=== PATIENT | female | born 1980 | race Caucasian/White ===

== ENCOUNTER 2020-12-24 11:53 | Inpatient (IN) | payer OTHER ==
[2020-12-24 15:36] VITALS: BMI 34.9
[2020-12-24] MEDS ORDERED: HYDRALAZINE HCL 20 MG/ML VIAL IV PRN (15:48)
--- NOTE | 2020-12-24 16:04 | P.HP ---
Certification for Inpatient Patient admitted to: Inpatient With expected LOS: >2 Midnights Patient will require the following post-hospital care: None Practitioner: I am a practitioner with admitting privileges, knowledge of patient current condition, hospital course, and medical plan of care. Services: Services provided to patient in accordance with Admission requirements found in Title 42 Section 412.3 of the Code of Federal Regulations Patient History Date of Service: 12/24/20 Primary Care Provider: abram Reason for admission: supraventricular History of Present Illness: Patient has been having a week of tachycardia. She had a syncopal episode during a airplane trip. She had a negative ct scan at that time. However she continued to have dizziness and tachycardia. Followed up with us on . The patient had thyroid labs done and was started on coreg However she is having brain fog dizziness and continous tachycardia. She is very cncerned about this. Allergies No Known Allergies Allergy (Unverified 12/24/20 15:54) - Past Medical/Surgical History -: Anxiety -: Depression -: Migraine -: Thyroid Dz -: Rods in Rt leg -: Right leg repair/hx of fracture -: Breast augmentation -: - Social History Smoking Status: Never smoker Alcohol use: No CD- Drugs: No Caffeine use: No Place of Residence: Home Review of Systems 10-point ROS is otherwise unremarkable Cardiovascular: Palpitations, Light Headedness Physical Examination - Vital Signs Temperature: 98.6 F Blood Pressure: 143/82 Pulse: 87 Respirations: 16 Pulse Ox (%): 97 - Physical Exam General: Alert, In no apparent distress HEENT: Atraumatic, PERRLA, Mucous membr. moist/pink, EOMI, Sclerae nonicteric Neck: Supple, 2+ carotid pulse no bruit, No LAD, Without JVD or thyroid abnormality Respiratory: Clear to auscultation bilaterally, Normal air movement Cardiovascular: Normal S1 S2, Irregular heart rate/rhythm Gastrointestinal: Normal bowel sounds, No tenderness Musculoskeletal: No tenderness Integumentary: No rashes Neurological: Normal gait, Normal speech, Normal strength at 5/5 x4 extr, Normal tone, Normal affect Lymphatics: No axilla or inguinal lymphadenopathy Assessment and Plan - Problems (Diagnosis) (1) Supraventricular arrhythmia Current Visit: Yes Status: Acute Plan: Will admit to the hospital Increase the patients coreg. Consult Dr. Almanzar. Will keep her on levaquin. Order a stat ct scan Discharge Plan: Home Plan to discharge in: 48 Hours - Advance Directives Does patient have a Living Will: No Does patient have a Durable POA for Healthcare: No - Code Status/Comfort Care Code Status Assessed: No Code Status: Full Code Physician Review: Patient Assessed, Agree with Above Assessment and Plan Critical Care: No Time Spent Managing Pts Care (In Minutes): 70
[2020-12-24] MEDS ORDERED: ALPRAZOLAM 1 MG TABLET PO PRN (16:09)
[2020-12-24] MEDS: carvediloL 12.5 MG TAB PO SCH (16:57)
[2020-12-24] MEDS ORDERED: ENOXAPARIN 40 MG/0.4 ML SQ SCH (17:00)
[2020-12-24] MEDS ORDERED: DIVALPROEX ER 250 MG TAB PO SCH (21:00)
[2020-12-24] MEDS ORDERED: TOPIRAMATE 100 MG TAB PO SCH (21:00)
[2020-12-25] MEDS: carvediloL 12.5 MG TAB PO SCH (06:13)
[2020-12-25 06:39] LABS: Absolute Lymphocytes (CBC) 2.1 K/uL (0.7-4.9); Basophils % 0.8 % (0-1.3); Hematocrit 38.5 % (36.0-45.0); MPV 10.5 fL (7.6-11.3)
[2020-12-25 06:48] LABS: Albumin 2.7 g/dL (3.4-5.0); Bilirubin Total 0.3 mg/dL (0.2-1.0); Potassium 3.6 mmol/L (3.5-5.1)
[2020-12-25] MEDS ORDERED: PNEUMOCOCCAL VACCINE 0.5 ML IMVAC ONE (08:00)
[2020-12-25] MEDS ORDERED: INFLUENZA VACCINE (for 6+ mo) 0.5 ML DOSE IMVAC ONE (08:00)
[2020-12-25] MEDS: GABAPENTIN 300 MG CAP PO SCH ×2 (08:15→13:50)
[2020-12-25 08:41] VITALS: BP 118/69; TEMP 96.8
[2020-12-25] MEDS ORDERED: SUMATRIPTAN SUCC 6MG/0.5ML VIAL SQ PRN (09:00)
[2020-12-25] MEDS ORDERED: DICLOFENAC SOD D.R. 75 MG TAB PO SCH (09:00)
[2020-12-25] MEDS ORDERED: PARoxetine HCL 10 MG TAB PO SCH (09:00)
[2020-12-25 10:17] VITALS: O2SAT 100
--- NOTE | 2020-12-25 13:12 | P.DS ---
Admission Date: 12/24/20 Discharge Date: 12/25/20 Primary Care Provider: abram Disposition: ROUTINE DISCHARGE Discharge Condition: GOOD Reason for Admission: supraventricular - Problems (1) Supraventricular arrhythmia Current Visit: Yes Status: Acute (2) Sleep apnea Current Visit: Yes Status: Acute Qualifiers: Sleep apnea type: obstructive Qualified Code(s): G47.33 - Obstructive sleep apnea (adult) (pediatric) (3) Depression Current Visit: Yes Status: Chronic Qualifiers: Depression Type: major depressive disorder Brief History of Present Illness: Patient has been having a week of tachycardia. She had a syncopal episode during a airplane trip. She had a negative ct scan at that time. However she continued to have dizziness and tachycardia. Followed up with us on . The patient had thyroid labs done and was started on coreg However she is having brain fog dizziness and continous tachycardia. She is very cncerned about this. Hospital Course: Patient was admitted to the hospital for the SVT. When here she gave a MED Rec. Several medications I was unaware of. 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 She has been on clonazepam, riatlin, and occasional norcos. However the patient states she only takes the ritalin when she feels like and splits the pills in half. 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 I had a long discussion with her that this is dangerous polypharmacy. She goes to a [place] psychiatrist for these medications. 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 She had a normal sleep studies a few years ago. She has a stop bang score of 4. Which is a high risk of sleep ap gerhard. Several times people with anxiety and difficulty focusing have been given the above meds for anxiety and ahdh. They do improve with cpap. Will discharge on coreg. She is rate controlled at this time. The patient can have her work up for sleep apnea and an echo as an out patient . Vital Signs/Physical Exam: Temp Pulse Resp BP Pulse Ox 96.8 F 60 16 118/69 100 12/25/20 08:00 12/25/20 08:00 12/25/20 08:00 12/25/20 08:00 12/25/20 08:00 General: Alert, In no apparent distress HEENT: Atraumatic, PERRLA, Other (Mallampatti score is 3), EOMI Neck: Supple, JVD not distended, Other (neck circumference is 15") Respiratory: Clear to auscultation bilaterally, Normal air movement Cardiovascular: Regular rate/rhythm, Normal S1 S2 Gastrointestinal: Normal bowel sounds, No tenderness Musculoskeletal: No tenderness Integumentary: No rashes Neurological: Normal speech, Normal tone, Normal affect Lymphatics: No axilla or inguinal lymphadenopathy Laboratory Data at Discharge: WBC 5.20 K/uL (4.3-10.9) 12/25/20 06:15 Hgb 12.8 g/dL (12.0-15.0) 12/25/20 06:15 Hct 38.5 % (36.0-45.0) 12/25/20 06:15 Plt Count 151 K/uL (152-406) L 12/25/20 06:15 Sodium 145 mmol/L (136-145) 12/25/20 06:15 Potassium 3.6 mmol/L (3.5-5.1) 12/25/20 06:15 BUN 11 mg/dL (7-18) 12/25/20 06:15 Creatinine 0.97 mg/dL (0.55-1.3) 12/25/20 06:15 Glucose 105 mg/dL (74-106) 12/25/20 06:15 Total Bilirubin 0.3 mg/dL (0.2-1.0) 12/25/20 06:15 AST 8 U/L (15-37) L 12/25/20 06:15 ALT 19 U/L (12-78) 12/25/20 06:15 Alkaline Phosphatase 132 U/L (45-117) H 12/25/20 06:15 Home Medications: Butalbit/Acetamin/Caff/Codeine [Wibnxh-Tffjzkup-Saa-Cod 50-325] 50 - 325 mg PO DAILY PRN 12/24/20 Cyclobenzaprine [Flexeril*] 10 mg PO BID PRN 12/24/20 Divalproex ER [Depakote *ER] 500 mg PO BEDTIME 12/24/20 Gabapentin 600 mg PO TID 12/24/20 Ondansetron [Zofran (Odt)*] 4 mg PO PRN PRN 12/24/20 Paroxetine HCl [Paxil] 20 mg PO DAILY 12/24/20 Rizatriptan Benzoate [Rizatriptan] 10 mg PO PRN PRN 12/24/20 Topiramate [Topamax] 100 mg PO BEDTIME 12/24/20 Trazodone [Desyrel*] 100 mg PO BEDTIME 12/24/20 carvediloL [Coreg*] 6.25 mg PO BID 12/24/20 hydrOXYzine HCL [Atarax*] 25 mg PO DAILY PRN 12/24/20 Diclofenac Na [Voltaren D.r*] 75 mg PO DAILY PRN #30 tab 12/25/20 carvediloL [Coreg*] 12.5 mg PO BID 6AM 6PM 30 Days #60 tab 12/25/20 New Medications: carvediloL [Coreg*] 12.5 mg PO BID 6AM 6PM 30 Days #60 tab Diclofenac Na [Voltaren D.r*] 75 mg PO DAILY PRN #30 tab PRN Reason: Pain Scale 8-10 (Severe) Diet: Regular Activity: Ad alvin Followup: Alex Gallagher MD [Family Provider] - 1 Week Daniel Almanzar MD [ACTIVE - CAN ADMIT] - 1-2 Weeks Time spent managing pt's care (in minutes): 40
[2020-12-25] MEDS ORDERED: TRAZODONE 50 MG TABLET PO SCH (21:00)
--- NOTE | 2020-12-28 07:41 | ECHO ---
HEIGHT: 5 ft 8 in WEIGHT: 230 lb 0 oz DATE OF STUDY: 12/25/[address]: Alex Gallagher MD 2-DIMENSIONAL: YES M.MODE: YES DOPPLER: YES COLOR FLOW: YES TDS: NO PORTABLE: NO DEFINITY: NO BUBBLE STUDY: NO DIAGNOSIS: SUPRAVENTRICULAR TACHYCARDIA CARDIAC HISTORY: CATHERIZATION: NO SURGERY: NO PROSTHETIC VALVE: NO PACEMAKER: NO MEASUREMENTS (cm) DIASTOLIC (NORMALS) SYSTOLIC (NORMALS) IVSd 1.0 (0.6-1.2) LA Diam 3.1 (1.9-4.0) LVEF 60-65% LVIDd 4.3 (3.5-5.7) LVIDs 2.6 (2.0-3.5) %FS 41% LVPWd 1.2 (0.6-1.2) Ao Diam 2.5 (2.0-3.7) 2 DIMENSIONAL ASSESSMENT: RIGHT ATRIUM: NORMAL LEFT ATRIUM: NORMAL RIGHT VENTRICLE: NORMAL LEFT VENTRICLE: NORMAL TRICUSPID VALVE: NORMAL MITRAL VALVE: NORMAL PULMONIC VALVE: NORMAL AORTIC VALVE: NORMAL PERICARDIAL EFFUSION: NONE AORTIC ROOT: NORMAL LEFT VENTRICULAR WALL MOTION: NORMAL DOPPLER/COLOR FLOW: NORMAL COMMENTS: NORMAL LEFT VENTRICULAR EJECTION FRACTION 60-65%. NORMAL WALL MOTION. TECHNOLOGIST: Sánchez PHAN
== END 2020-12-25 14:15 | disposition home or self-care (01) | DRG 310 ==
LOC: 4TH 14:40
PROVIDERS: ADMIT Internal Medicine; ATTEND Internal Medicine
DX: I47.1 Supraventricular tachycardia (principal); G47.33 Obstructive sleep apnea (adult) (pediatric); F32.A Depression, unspecified; Z79.899 Other long term (current) drug therapy; Z20.822 Contact with and (suspected) exposure to COVID-19; Z23 Encounter for immunization
CPT/HCPCS: 36415; 80053; 85025; 90471; 90732; 93005; 93306; J1650; J3030; Q2035; U0003

== ENCOUNTER 2021-02-04 22:03 | Emergency (ER) | payer OTHER ==
--- OUTSIDE RECORDS SUMMARY | 2021-02-04 22:05 | XMS REPORT | Continuity of Care Document ---
:1980 Author Organization [facility] t Address [address] [place] [address] Care Team Providers Name Role Phone Carter LICONA Attending Clinician Unavailable Porter CAMILO Attending Clinician Unavailable Mary NO, L Attending Clinician Sandrita FRANCES Attending Clinician Unavailable Payers Payer Name Policy Type Policy Number Effective Date Expiration Date S ource HIM AMBETTER FROM [id number] 2020 FORMERLY [facility] 00:00:00 [employer] [id number] 2019 00:00:00 Problems This patient has no known problems. Allergies, Adverse Reactions, Alerts Allergy Allergy Status Severity Reaction(s) Onset Inactive Treating Comm ents Source Name Type Date Date Clinician Sulfa Propensi Active Rash 2020-0 Univers (Sulfona ty to 7-03 ity of mide adverse 00:00: [place] Antibiot reaction 00 Medica l ics) s Branch SULFA Drug Active Hives 2020-0 Univers (SULFONA Class 7-03 ity of MIDE 00:00: [place] ANTIBIOT 00 Medical ICS) Branch NO KNOWN Drug Active Univers ALLERGIE Class ity of S [facility] Social History Social Habit Start Date Stop Date Quantity Comments [facility] Smoking Status Start Date Stop Date Source Never smoker [facility] Medications This patient has no known medications. Vital Signs Vital Name Observation Time Observation Value Comments Source Systolic blood 2019-09-06 13:42:00 136 mm[Hg] Univer sity [facility] pressure [facility] Diastolic blood 2019-09-06 13:42:00 92 mm[Hg] [facility] rate 2019-09-06 13:37:00 134 /min Universi ty [facility] Body weight 2019-09-06 13:37:00 99.791 kg Universi ty of [facility] Procedures This patient has no known procedures. Encounters Start End Encounter Admission Attending Care Care Encounter Source Date/Time Date/Time Type Type Clinicians Facility Department ID 2020-05-29 2020-05-29 Outpatient Venus LICONA [facility] [id number] Univers 11:00:00 11:00:00 JAMILAH [facility] 2020-05-08 2020-05-08 Outpatient [facility] [id number] Univers 11:20:00 11:20:00 [id number] [facility] 2020-05-08 2020-05-08 Outpatient Venus LICONA [facility] [id number] Univers 11:20:00 11:20:00 JAMILAH [facility] 2020-03-16 2020-03-16 Outpatient Venus CAMILO [facility] [id number] Univers 14:30:00 14:30:00 WALTER [id number] [facility] 2020-03-16 2020-03-16 Outpatient Venus CAMILO [facility] [id number] Univers 14:30:00 14:30:00 WALTER [facility] 2020-03-13 2020-03-13 Outpatient Venus CAMILO [facility] [id number] Univers 08:30:00 08:30:00 WALTER [id number] [facility] 2020-03-13 2020-03-13 [facility] [id number] Univers 08:30:00 08:30:00 WALTER [facility] 2019-12-05 2019-12-05 Outpatient Venus CAMILO [facility] [id number] Univers 14:15:00 14:15:00 WALTER [facility] 2019-12-05 2019-12-05 Outpatient Venus CAMILO [facility] [id number] Univers 14:15:00 14:15:00 WALTER [facility] 2019-11-28 2019-11-28 Outpatient Venus CAMILO [facility] [id number] Univers 14:45:00 14:45:00 WALTER [id number] [facility] 2019-11-28 2019-11-28 Outpatient R LESLEE [facility] [id number] Univers 14:45:00 14:45:00 WALTER peralta [facility] 2019-09-06 2019-09-06 Hospital [facility] [id number] Univers 08:54:00 23:59:00 Encounter Anibal Remy [employer] [id number] ity of Surgical [id number] Ruben as Specialti [id number] Tn suhail es [address] [facility] 2019-09-06 2019-09-06 Office [facility] [id number] Univers 08:29:22 09:41:49 Visit Anibal Remy [employer] [id number] it y of Surgical [id number] Ruben as Specialti [id number] Tn fanyal es [address] [facility] 2019-09-06 2019-09-06 [facility] [id number] Univers 08:30:00 08:30:00 ANIBAL peralta [facility] Results This patient has no known results.
[2021-02-04] MEDS ORDERED: ASPIRIN 81 MG CHEWABLE TABLET ONE (22:27)
[2021-02-04 22:35] LABS: Absolute Lymphocytes (CBC) 3.2 K/uL (0.7-4.9); Basophils % 1.1 % (0-1.3); Hematocrit 41.5 % (36.0-45.0); Lymphocytes % 39.7 % (15.3-44.8); MPV 10.3 fL (7.6-11.3); RBC Red Blood Cell Count 4.58 M/uL (3.86-4.86)
[2021-02-04 22:36] LABS: Protime INR 0.9
[2021-02-04 22:53] LABS: ALT/SGPT 17 U/L (12-78); AST/SGOT 15 U/L (15-37); Albumin 2.7 g/dL (3.4-5.0); Alkaline Phosphatase 129 U/L (45-117); BUN Blood Urea Nitrogen 12 mg/dL (7-18); Bicarbonate 24 mmol/L (21-32); Bilirubin Direct < 0.1 mg/dL (0-0.2); Bilirubin Total 0.1 mg/dL (0.2-1.0); Glucose Level 115 mg/dL (74-106); NT PRO-BNP 40 pg/mL (<125); Potassium 3.8 mmol/L (3.5-5.1); Protein, Total 6.8 g/dL (6.4-8.2); Sodium Level 139 mmol/L (136-145); Troponin (Emerg Dept Use Only) < 0.02 ng/mL (0.0-0.045)
--- NOTE | 2021-02-04 22:59 | ER ---
Nurse's Notes [facility] Name: Ngozi Valdes Age: 40 yrs Sex: Female : 1980 Arrival Date: 02/04/2021 Time: 22:04 Bed 11 Private MD: Diagnosis: Essential (primary) hypertension;Chest pain, unspecified;Obesity, unspecified Presentation: 02/04 22:15 Chief complaint: Patient states: she was lying down tonight and started having chest bb pain radiating around her chest and back and into her shoulders pain is currently 8/10 and she feels short of breath. Coronavirus screen: At this time, the client does not indicate any symptoms associated with coronavirus-19. Ebola Screen: No symptoms or risks identified at this time. Initial Sepsis Screen: Does the patient meet any 2 criteria? No. Patient's initial sepsis screen is negative. Does the patient have a suspected source of infection? No. Patient's initial sepsis screen is negative. Risk Assessment: Do you want to hurt yourself or someone else? Patient reports no desire to harm self or others. Onset of symptoms was February 04, 2021. 22:15 Method Of Arrival: Ambulatory bb 22:15 Acuity: KASSY 3 bb Triage Assessment: 22:23 General: Appears in no apparent distress. uncomfortable, Behavior is cooperative, bb anxious. Pain: Complains of pain in chest Pain currently is 8 out of 10 on a pain scale. Neuro: Level of Consciousness is awake, alert, obeys commands, Oriented to person, place, time, situation. Cardiovascular: Capillary refill < 3 seconds Patient's skin is warm and dry. Pulses are all present. Rhythm is sinus tachycardia. Respiratory: Respiratory effort is even, unlabored, Respiratory pattern is regular. GI: Abdomen is obese. : No signs and/or symptoms were reported regarding the genitourinary system. Derm: Skin is pink, warm \T\ dry. Musculoskeletal: Circulation, motion, and sensation intact. 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 - Social history:: Smoking status: Patient denies any tobacco usage or history of. Patient/guardian denies using alcohol, street drugs. - Family history:: not pertinent. Screenin:27 Abuse screen: Denies threats or abuse. Nutritional screening: No deficits noted. bb Tuberculosis screening: No symptoms or risk factors identified. Fall Risk None identified. Assessment: 22:27 Reassessment: No changes from previously documented assessment. Patient is alert, bb oriented x 3, equal unlabored respirations, skin warm/dry/pink. see triage assessment. Vital Signs: 22:15 BP 132 / 88; Pulse 105; Resp 18 S; Temp 98.1(TE); Pulse Ox 100% on R/A; Weight 104.33 bb kg (R); Height 5 ft. 8 in. (172.72 cm) (R); Pain 8/10; 22:15 Body Mass Index 34.97 (104.33 kg, 172.72 cm) bb ED Course: 22:04 Patient arrived in ED. bp1 22:19 Inserted saline lock: 20 gauge in right antecubital area, using aseptic technique. ld1 Blood collected. 22:21 Jayjay Westbrook MD is Attending Physician. abelardo 22:23 Triage completed. bb 22:23 Arm band placed on Patient placed in an exam room, on a stretcher, on bus driver/monitor, bb on pulse oximetry. EKG completed in triage. Results shown to MD. Family accompanied patient. 22:27 Patient maintains SpO2 saturation greater than 95% on room air. bb 22:27 Patient has correct armband on for positive identification. Placed in gown. Bed in low bb position. Call light in reach. color television console monitor on. Pulse ox on. NIBP on. Warm blanket given. 22:36 XRAY Chest (1 view) In Process Unspecified. EDMS 22:55 Isaiah Yu is Hospitalizing Provider. abelardo 23:34 CT Chest For PE Angio In Process Unspecified. EDMS 12 00:06 No provider procedures requiring assistance completed. Patient admitted, IV remains in lp1 place. Administered Medications: 02/04 22:30 Drug: Aspirin Chewable Tablet 324 mg Route: PO; ld1 12 00:18 Follow up: Response: No adverse reaction ld1 00:17 Drug: Pepcid (famotidine) 20 mg Route: IVP; Site: right antecubital; ld1 00:17 Follow up: Response: No adverse reaction ld1 00:18 Drug: Lovenox (enoxaparin) 100 mg Route: Sub-Q; Site: abdomen; ld1 00:18 Follow up: Response: No adverse reaction ld1 Outcome: 02/04 22:57 Decision to Hospitalize by Provider. abelardo 12 00:00 Admitted to ER Hold. Please see [facility] for further documentation. lp1 00:07 Condition: stable lp1 00:07 Instructed on the need for admit. 01:00 Patient left the ED. lp1 Signatures: Dispatcher [employer] EDJayjay Morales MD MD cha Ballard, Brenda, RN RN Ramona Granados, KAPIL RN lp1 Doris Smith Lauren, RN RN ld1 Corrections: (The following items were deleted from the chart) 02:26 01:54 Patient left the ED. lp1 lp1
--- NOTE | 2021-02-04 22:59 | EDPHYS ---
Physician Documentation [facility] Name: Ngozi Valdes Age: 40 yrs Sex: Female : 1980 Arrival Date: 02/04/2021 Time: 22:04 Bed 11 Private MD: ED Physician Jayjay Westbrook HPI: 02/04 22:49 This 40 yrs old Female presents to ER via Ambulatory with complaints of Chest abelardo Pain > 30 y/o. 22:49 The patient or guardian reports chest pain that is located primarily in the substernal abelardo area. Onset: just prior to arrival. The pain does not radiate. Associated signs and symptoms: Pertinent positives: shortness of breath. The chest pain is described as a pressure, squeezing. Duration: The patient or guardian reports a single episode, that is still ongoing. Modifying factors: The symptoms are alleviated by nothing. the symptoms are aggravated by nothing. Severity of pain: At its worst the pain was moderate in the emergency department the pain has improved mildly. The patient has not experienced similar symptoms in the past. 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 - Social history:: Smoking status: Patient denies any tobacco usage or history of. Patient/guardian denies using alcohol, street drugs. - Family history:: not pertinent. ROS: 22:49 Constitutional: Negative for fever, chills, and weight loss, Eyes: Negative for injury, abelardo pain, redness, and discharge, ENT: Negative for injury, pain, and discharge, Neck: Negative for injury, pain, and swelling, Abdomen/GI: Negative for abdominal pain, nausea, vomiting, diarrhea, and constipation, Back: Negative for injury and pain, : Negative for injury, bleeding, discharge, and swelling, MS/Extremity: Negative for injury and deformity, Skin: Negative for injury, rash, and discoloration, Neuro: Negative for headache, weakness, numbness, tingling, and seizure, Psych: Negative for depression, anxiety, suicide ideation, homicidal ideation, and hallucinations, Allergy/Immunology: Negative for hives, rash, and allergies, Endocrine: Negative for neck swelling, polydipsia, polyuria, polyphagia, and marked weight changes, Hematologic/Lymphatic: Negative for swollen nodes, abnormal bleeding, and unusual bruising. 22:49 Cardiovascular: Positive for chest pain, of the chest. 22:49 Respiratory: Positive for cough. Exam: 22:49 Constitutional: This is a well developed, well nourished patient who is awake, alert, abelardo and in no acute distress. Head/Face: Normocephalic, atraumatic. Eyes: Pupils equal round and reactive to light, extra-ocular motions intact. Lids and lashes normal. Conjunctiva and sclera are non-icteric and not injected. Cornea within normal limits. Periorbital areas with no swelling, redness, or edema. ENT: Nares patent. No nasal discharge, no septal abnormalities noted. Tympanic membranes are normal and external auditory canals are clear. Oropharynx with no redness, swelling, or masses, exudates, or evidence of obstruction, uvula midline. Mucous membranes moist. Neck: Trachea midline, no thyromegaly or masses palpated, and no cervical lymphadenopathy. Supple, full range of motion without nuchal rigidity, or vertebral point tenderness. No Meningismus. Chest/axilla: Normal chest wall appearance and motion. Nontender with no deformity. No lesions are appreciated. Cardiovascular: Regular rate and rhythm with a normal S1 and S2. No gallops, murmurs, or rubs. Normal PMI, no JVD. No pulse deficits. Respiratory: Lungs have equal breath sounds bilaterally, clear to auscultation and percussion. No rales, rhonchi or wheezes noted. No increased work of breathing, no retractions or nasal flaring. Abdomen/GI: Soft, non-tender, with normal bowel sounds. No distension or tympany. No guarding or rebound. No evidence of tenderness throughout. Back: No spinal tenderness. No costovertebral tenderness. Full range of motion. Skin: Warm, dry with normal turgor. Normal color with no rashes, no lesions, and no evidence of cellulitis. MS/ Extremity: Pulses equal, no cyanosis. Neurovascular intact. Full, normal range of motion. Neuro: Awake and alert, GCS 15, oriented to person, place, time, and situation. Cranial nerves II-XII grossly intact. Motor strength 5/5 in all extremities. Sensory grossly intact. Cerebellar exam normal. Normal gait. Psych: Awake, alert, with orientation to person, place and time. Behavior, mood, and affect are within normal limits. 22:49 ECG was reviewed by the Attending Physician. Vital Signs: 22:15 BP 132 / 88; Pulse 105; Resp 18 S; Temp 98.1(TE); Pulse Ox 100% on R/A; Weight 104.33 bb kg (R); Height 5 ft. 8 in. (172.72 cm) (R); Pain 8/10; 22:15 Body Mass Index 34.97 (104.33 kg, 172.72 cm) bb MDM: 22:21 Patient medically screened. abelardo 22:51 Differential diagnosis: abnormal EKG, acute myocardial infarction, acute pericarditis, abelardo anxiety, coronary artery disease chest wall pain, Cholelithiasis esophagitis, gastroesophageal reflux disease (GERD), pancreatitis, pleurisy, pulmonary embolus, stable angina, thoracic aortic disection. HEART Score: History: Moderately Suspicious (1), ECG: Normal (0), Age: < or = 45 years (0), Risk Factors: > or = 3 Risk factors for atherosclerotic disease (2), [Hypertension] [+ Family HX] [Obesity] Troponin: < or = 1 x Normal Limit (0). The patient was given aspirin in the Emergency Department. The patient's deep vein thrombosis risk score was calculated as follows: Total Score: 0. This patient was found to be at low risk for a deep vein thrombosis by using the Well's assessment criteria. The patient's pulmonary embolism risk score was calculated as follows: Total Score: 0-2 points. This patient was found to be at low risk for a pulmonary embolism by using the Well's assessment criteria. VINOD Risk Score: TOTAL SCORE = 0. Data reviewed: vital signs, nurses notes, lab test result(s), EKG, radiologic studies, plain films. Data interpreted: front desk monitor: rate is 105 beats/min, rhythm is regular, Pulse oximetry: on room air is 100 %. Test interpretation: by ED physician or midlevel provider: ECG, plain radiologic studies. Counseling: I had a detailed discussion with the patient and/or guardian regarding: the historical points, exam findings, and any diagnostic results supporting the discharge/admit diagnosis, lab results, radiology results, the need for further work-up and treatment in the hospital. 02/04 22:19 Order name: Basic Metabolic Panel; Complete Time: 00:50 ld1 02/04 22:19 Order name: CBC with Diff; Complete Time: 00:50 ld1 02/04 22:19 Order name: LFT's; Complete Time: 00:50 ld1 02/04 22:19 Order name: Magnesium; Complete Time: 00:50 ld1 02/04 22:19 Order name: NT PRO-BNP; Complete Time: 00:50 ld1 02/04 22:19 Order name: PT-INR; Complete Time: 00:50 ld1 02/04 22:19 Order name: Troponin (emerg Dept Use Only); Complete Time: 00:50 ld1 02/04 22:19 Order name: XRAY Chest (1 view) 1 02/04 22:21 Order name: Lipase [facility] 02/04 22:22 Order name: Lipase; Complete Time: 00:50 EDMS 02/04 22:48 Order name: CT Chest For PE Angio [facility] 02/04 22:19 Order name: EKG; Complete Time: 22:19 ld1 02/04 22:19 Order name: Cardiac monitoring; Complete Time: 22:30 ld1 02/04 22:19 Order name: EKG - Nurse/Tech; Complete Time: 22:19 ld1 02/04 22:19 Order name: IV Saline Lock; Complete Time: 22:19 ld02/04 22:19 Order name: Labs collected and sent; Complete Time: 22:19 ld02/04 22:19 Order name: O2 Per Protocol; Complete Time: 22:19 ld02/04 22:19 Order name: O2 Sat Monitoring; Complete Time: 22:19 ld1 EC:49 Rate is 101 beats/min. Rhythm is regular. QRS [place] is Normal. ID interval is normal. abelardo QRS interval is normal. QT interval is normal. No Q waves. T waves are Normal. No ST changes noted. Clinical impression: NSR w/ Non-specific ST/T Changes and Sinus tachycardia. Interpreted by me. Reviewed by me. Administered Medications: 22:30 Drug: Aspirin Chewable Tablet 324 mg Route: PO; 02/05 00:18 Follow up: Response: No adverse reaction ld1 00:17 Drug: Pepcid (famotidine) 20 mg Route: IVP; Site: right antecubital; ld1 00:17 Follow up: Response: No adverse reaction ld1 00:18 Drug: Lovenox (enoxaparin) 100 mg Route: Sub-Q; Site: abdomen; ld1 00:18 Follow up: Response: No adverse reaction ld1 Disposition Summary: 02/04/21 22:57 Hospitalization Ordered Hospitalization Status: Observation abelardo Provider: Isaiah Yu cha Condition: Fair abelardo Problem: new abelardo Symptoms: have improved abelardo Bed/Room Type: Standard abelardo Location: [facility] ER HOLD(02/04/21 23:06) Room Assignment: ERHOLD-(02/04/21 23:06) Diagnosis - Essential (primary) hypertension abelardo - Chest pain, unspecified abelardo - Obesity, unspecified abelardo Forms: - Medication Reconciliation Form abelardo - SBAR form abelardo Signatures: Dispatcher [employer] EDJillian Hay RN RN Jayjay Mock MD MD cha Ballard, Brenda, RN RN Navid Briones PA PA ej Dibbern, Lauren, RN RN ld1 Corrections: (The following items were deleted from the chart) 02/04 23:06 22:57 Telemetry/MedSurg (observation) [facility] 23: 22:57 [facility]
[2021-02-05] MEDS ORDERED: ENOXAPARIN 100 MG/ML SYR SQ ONE (00:05)
[2021-02-05] MEDS ORDERED: FAMOTIDINE 20 MG/2 ML VIAL IV ONE (00:06)
[2021-02-05 02:16] VITALS: TEMP 98.1; O2SAT 100
[2021-02-05 02:36] VITALS: BP 123/91
--- NOTE | 2021-02-05 07:37 | RAD REPORT ---
EXAM DESCRIPTION: RAD - Chest Single View - 02/04/2021 10:36 pm CLINICAL HISTORY: CHEST PAIN COMPARISON: No comparisons FINDINGS: Lines: None. Lungs: No evidence of edema or pneumonia. Pleural: No significant pleural effusions or pneumothorax. Cardiac: The heart size is within normal limits. Bones: No acute fractures. Other: IMPRESSION: No acute cardiopulmonary disease.
--- NOTE | 2021-02-05 19:04 | RAD REPORT ---
EXAM DESCRIPTION: CT - Chest For Pe Angio - 02/05/2021 6:38 am CLINICAL HISTORY: 40 years Female Chest pain;Dyspnea COMPARISON: None TECHNIQUE: Images were obtained in axial, sagittal, and coronal planes. Intravenous contrast was adm inistered. 3-D MIP imaging was performed. This exam was performed according to our departmental dose-optimization program which includes use of Automated Exposure Control, adjustment of the mA and/or kV according to patient size and/or use of iterative reconstruction technique. FINDINGS: No filling defects pulmonary arteries bilaterally. No aortic dissection or dilatation. No pericardial or pleural effusions bilaterally. No adenopathy. No lung parenchymal infiltrates or nodules seen. No pneumothorax. Bilateral breast implants. No acute osseous abnormality. No abnormality upper abdomen. IMPRESSION: No evidence for pulmonary embolus. No aortic dissection or dilatation. No infiltrates se en. Electronically signed by: Edyta Camacho MD 02/05/2021 12:05 AM PUBLIC OPINION SURVEY TAKER Due to temporary technical issues with the PACS/Fluency reporting system, reports are being signed by the in house radiologists without review as a courtesy to insure prompt reporting. The interpreting radiologist is fully responsible for the content of the report.
--- NOTE | 2021-02-06 12:37 | EKG ---
Test Date: 2021-02-04 Test Time: 22:12:01 Shift Boss: SUNNY MEASUREMENT RESULTS: Intervals: Rate: 101 SC: 136 QRSD: 82 QT: 342 QTc: 443 [place]: P: 34 SC: 136 QRS: 49 T: 24 INTERPRETIVE STATEMENTS: Sinus tachycardia Otherwise normal ECG Compared to ECG 12/24/2020 18:02:22 Sinus rhythm no longer present T-wave abnormality no longer present Electronically Signed On 02-06-21 12:35:45 FRUIT RAISER by Hever Montalvo
== END 2021-02-05 01:54 | disposition left against medical advice (07) ==
LOC: ER 22:03 → UNDOADMOB 02-05 00:28 → ERHOLD 02-05 00:28 → UNDODISOB 02-05 01:00 → ER 02-05 01:54
DX: R07.9 Chest pain, unspecified (principal); I10 Essential (primary) hypertension; E66.9 Obesity, unspecified; Z68.34 Body mass index [BMI] 34.0-34.9, adult; Z88.2 Allergy status to sulfonamides; Z53.29 Procedure and treatment not carried out because of patient's decision for other reasons
CPT/HCPCS: 93005; 85025; 80048; 36415; 83735; 85610; 80076; 84484; 83690; 83880; 71275; 71045; 96372; 96374; 99285; Q9967; J1650

== ENCOUNTER 2022-04-15 19:43 | Emergency (ER) | payer OTHER ==
--- OUTSIDE RECORDS SUMMARY | 2022-04-15 19:47 | XMS REPORT | Continuity of Care Document ---
:1980 Author Organization [facility] t Address [address] [place] [address] Care Team Providers Name Role Phone TRISHA GAGE JR Primary Care Physician Unavailable ERINN BRADY Attending Clinician Unavailable Erinn Brady MD Attending Clinician SHADY GUZMAN Attending Clinician Unavailable JAMILAH LICONA Attending Clinician Unavailable WALTER CAMILO Attending Clinician Unavailable Manuel Hernandez MD Attending Clinician MANUEL HERNANDEZ Attending Clinician Unavailable ERINN BRADY Admitting Clinician Unavailable Payers Payer Name Policy Type Policy Number Effective Date Expiration Date S eusebio GARG BCBS BLUE [id number] 2021 [facility]00 HIM AMBETTER FROM [id number] 2020 [facility] 00:00:00 Problems This patient has no known [...] 00:00: [place] ANTIBIOT 00 Medical ICS) Branch Sulfa Propensi Active Rash 2020-0 Univers (Sulfona ty to 7-03 ity of mide adverse 00:00: [place] Antibiot reaction 00 Medica l ics) s Branch NO KNOWN Drug Active Univers ALLERGIE Class ity of S [facility] Social History Social Habit Start Date Stop Date Quantity Comments Source Exposure to 2021-10-29 2021-11-08 Yes [facility] SARS-CoV-2 00:00:00 05:40:00 [facility] (event) [place] Tobacco use and 2019-09-06 2019-09-06 Smokeless tobacco Un iversity of exposure 00:00:00 00:00:00 non-user [facility] Sex Assigned At [birth year] Universit y of 00:00:00 00:00:00 [facility] Smoking Status Start Date Stop Date Source Never smoked tobacco [facility] [place] Medications Ordered Filled Start Stop Current Ordering Indication Dosage Frequency Signature Comments Components Source Medication Medication Date Date Medication? Clinician (SIG) Name Name morpHINE (4 No 4mg 4 mg, Slow Univers mg/mL) 11-08 IV Push, ity of injection 4 12:30: 12:22 [place]CE[place] 1 [place] :[place] dose, On Medical 11/08/21 Branch at 0730, STAT ketorolac No 30mg 30 mg, Unive rs (TORADOL) 11-08 Slow IV ity of injection 12:15: 11:20 Push, [place] 30 mg 00 :00 ONCE, 1 Medical dose, On Branch 11/08/21 at 0715, Routine iopamidol No [id number] 80mL 80 mL, Univers (ISOVUE 11-08 Intravenou ity o f 370-500 mL) 11:25: 11:26 s, ONCE, 1 [place] injection 00 :00 dose, On Medica l 80 mL 11/08/21 Branch at 0645, Routine NaCl 0.9% 2021- No 500mL at 999 Univ ers (NS) bolus 11-08 mL/hr, 500 it y of infusion 11:15: 12:17 mL, IV [place] 500 mL 00 :00 Infusion, Medical ONCE, 1 Branch dose, On 11/08/21 at 0615, STAT diphenhydrA 2021- No 25mg 25 mg, Uni vers MINE 11-08 Slow IV ity of (BENADRYL) 11:15: 11:19 Push, [place] injection 00 :00 ONCE, 1 Medical 25 mg dose, On Branch Mon11/08/21 at 0615, STAT metoclopram No 10mg 10 mg, Uni vers viola HCl 11-08 Slow IV ity of (REGLAN) 11:15: 11:18 Push, [place] injection 00 :00 ONCE, 1 Medical 10 mg dose, On Branch Mon11/08/21 at 0615, SIMEON benzonatate Yes [id number] 200mg Take 1 Univers 200 mg 11-08 capsule by ity of capsule 00:00: mouth 3 [place] 00 (three) Medical times Branch daily as needed for Cough. ondansetron Yes [id number] 4mg Take 1 Univers (ZOFRAN) 4 11-08 tablet by ity of mg tablet 00:00: mouth [place] 00 every 8 Medical (eight) Branch hours as needed for Nausea and Vomiting (N/V). Immunizations Ordered Filled Immunization Date Status Comments [facility] e Immunization Name Name SARS-COV-2 COVID-19 2020-05-29 Completed Unive rsity of PFIZER VACCINE 00:00:00 [facility] SARS-COV-2 COVID-19 2020-05-08 Completed Unive rsity of PFIZER VACCINE 00:00:00 [facility] Vital Signs Vital Name Observation Time Observation Value Comments Source Systolic blood 2021-11-08 12:00:00 132 mm[Hg] Univer sity of pressure [facility] Diastolic blood 2021-11-08 12:00:00 95 mm[Hg] Unive rsity of pressure [facility] Heart rate 2021-11-08 12:00:00 83 /min [facility] Body temperature 2021-11-08 12:00:00 37.33 Penny [facility] rate 2021-11-08 12:00:00 19 /min [facility] Oxygen saturation in 2021-11-08 12:00:00 95 /min [facility] Arterial blood by [facility] Pulse oximetry [place] Body height 2021-11-08 10:46:00 172.7 cm [facility] Body weight 2021-11-08 10:46:00 113.399 kg [facility] BMI 2021-11-08 10:46:00 38.01 kg/m2 [facility] Systolic blood 2019-09-06 13:42:00 136 mm[Hg] Univer sity of pressure [facility] Diastolic blood 2019-09-06 13:42:00 92 mm[facility]Hg[facility] 2019-09-06 13:37:00 134 /min [facility] Body weight 2019-09-06 13:37:00 99.791 kg [facility] Procedures Procedure Date / Time Performed Performing Clinician Sourc e EKG-12 LEAD 2021-11-08 12:21:30 Erinn Brady [facility] [place] CT CHEST PULMONARY 2021-11-08 11:30:24 Erinn Brady [facility] ANGIOGRAM [facility] COVID-19 (ID NOW 2021-11-08 11:14:00 Erinn Brady [facility] RAPID TESTING) [facility] COMP. METABOLIC PANEL 2021-11-08 11:09:00 Erinn Brady [facility] ([id number]) [facility] CBC WITH DIFF 2021-11-08 11:09:00 Erinn Brady [facility] [place] NOTICE OF PRIVACY 2021-11-08 10:39:28 Doctor Unassigned, No Univ [facility] PRACTICES Name [facility] CONSENT/REFUSAL FOR 2021-11-08 10:38:44 Doctor Unassigned, No [facility] AND Name [facility] TREATMENT Encounters Start End Encounter Admission Attending Care Care Encounter Source Date/Time Date/Time Type Type Clinicians Facility Department ID 2021-11-08 2021-11-08 Emergency X BANDAR BRADY ERT [id number] Univers 05:49:00 07:34:00 ERINN peralta [facility] 2021-11-08 2021-11-08 Emergency BANDAR Brady [id number] Univers 05:49:00 07:34:00 Erinn YOO [id number] ity of [place] [id number] [place] [facility] [id number] [facility] sunil 084 Branch 2021-03-12 2021-03-12 Outpatient Venus GUZMAN [facility] [id number] Univers 13:30:00 13:30:00 SHADY ity [facility] 2020-05-29 2020-05-29 [facility] [id number] Univers 11:00:00 11:00:00 JAMILAH [facility] 2020-05-08 2020-05-08 Outpatient Venus LICONA [facility] [id number] Univers 11:20:00 11:20:00 JAMILAH [facility] 2020-03-16 2020-03-16 Outpatient Venus CAMILO [facility] [id number] Univers 14:30:00 14:30:00 [facility] 2020-03-13 2020-03-13 [facility] [id number] Univers 08:30:00 08:30:00 [facility] 2019-12-05 2019-12-05 [facility] [id number] Univers 14:15:00 14:15:00 [facility] 2019-11-28 2019-11-28 [facility] [id number] Univers 14:45:00 14:45:00 [facility] 2019-09-06 2019-09-06 [facility] [id number] Univers 08:54:00 23:59:00 Encounter [facility] [id number] ity of Surgical [id number] Ruben as Specialti [id number] Hi dical es [address] [facility] 2019-09-06 2019-09-06 Office [facility] [id number] Univers 08:29:22 09:41:49 Visit Manuel [facility] [id number] it y of Surgical [id number] Ruben as Specialti [id number] Me dical es [address] [facility] 2019-09-06 2019-09-06 Outpatient R JUAN DANIEL, [facility] [id number] Univers 08:30:00 08:30:00 MANUEL peralta [facility] Results Test Description Test Time Test Comments Results Result Comments Source COMP. METABOLIC PANEL (50444) 2021-11-08 11:48:57 Test Item Value Reference Range Interpretation Comme nts NA (test code = 7926407208) 135 mmol/L 135-145 K (test code = 4518084748) 3.8 mmol/L 3.5-5 CL (test code = 6344487514) 104 mmol/L 98-108 CO2 TOTAL (test code = 6453411984) 22 mmol/L 23-31 L AGAP (test code = 3265316517) 2-16 BUN (test code = 0163990763) 6 mg/dL 7-23 L GLUCOSE (test code = 2347335246) 113 mg/dL 70-110 H CREATININE (test code = 1.08 mg/dL 0.5-1.04 H 5212552009) TOTAL BILI (test code = 0.2 mg/dL 0.1-1.2 8005010325) CALCIUM (test code = 0603008669) 9.6 mg/dL 8.6-10.6 T PROTEIN (test code = 5878149056) 6.1 g/dL 6.3-8.2 L ALBUMIN (test code = 4443148995) 3.8 g/dL 3.5-5 ALK PHOS (test code = 9402129849) 120 U/L 34-122 ALTv (test code = 1742-6) 20 U/L 5-35 AST(SGOT) (test code = 4548613788) 19 U/L 13-40 eGFR (test code = 1952912450) mL/min/1.73m2 AWILDA (test code = AWILDA) Association of Glomerular Filtration Rate (GFR) and Staging of Kidney Disease* + +-------- + ------+| GFR (mL/min/1.73 m2) ?| With Kidney Damage ?| ?Without Kidney Damage+ +-- + +| ?>90 ?| ?Stage one ?| ? Normal ?+ +------- + -------+| ?60-89 ?| ?Stage two ?| ? Decreased GFR ? + +-------- + ------+| ?30-59 ?| ?Stage three ?| ? Stage three ? + +-------- + ------+| ?15-29 ?| ?Stage four ? | ? Stage four ?+ +------- + -------+| ?<15 (or dialysis) ? ?| ?Stage five ? | ? Stage five ?+ +------- + -------+ *Each stage assumes the associated GFR level has been in effect for at least three months. ?Stages 1 to 5, with or without kidney disease, indicate chronic kidney disease. Notes: Determination of stages one and two (with eGFR >59mL/min/1.73 m2) requires estimation of kidney damage for at least three months as defined by structural or functional abnormalities of the kidney, manifested by either:Pathological abnormalities or Markers of kidney damage (including abnormalities in the composition of the blood or urine or abnormalities in imaging tests). Lab Interpretation (test code = Abnormal 40748-2) [facility] WITH [id number] 11:31:00 Test Item Value Reference Range Interpretation Comments WBC (test code = See_Comment [Automated 0690-2) message] The sy stem which generated this result transmitted reference range : 4.30 - 11.10 10*3/?L. The reference range was not used to interpret this result as normal/abnormal . RBC (test code = See_Comment [Automated 231-8) message] The sy stem which generated this result transmitted reference range : 3.93 - 5.25 10*6/?L. The reference range was not used to interpret this result as normal/abnormal . HGB (test code = 13.9 g/dL 11.6-15 718-7) HCT (test code = 41.2 % 35.7-45.2 4544-3) MCV (test code = 89.4 fL 80.6-95.5 787-2) MCH (test code = 30.2 pg 25.9-32.8 785-6) MCHC (test code = 33.7 g/dL 31.6-35.1 786-4) RDW-SD (test code = 42.7 fL 39-49.9 35226-2) RDW-CV (test code = 13.1 % 12-15.5 788-0) PLT (test code = See_Comment [Automated 777-3) message] The sy stem which generated this result transmitted reference range : 166 - 358 10*3/ ?L. The reference r al was not used to interpret this result as normal/abnormal . MPV (test code = 12.0 fL 9.5-12.9 34561-6) NRBC/100 WBC (test See_Comment [Automat ed code = 7227127082) message] The system which generated this result transmitted reference range : 0.0 - 10.0 /100 WBCs. The refer ence range was not u sed to interpret th is result as normal/abnormal . NRBC x10^3 (test code See_Comment [Auto mated = 0692417186) message] The s ystem which generated this result transmitted reference range : 10*3/?L. The reference range was not used to interpret this result as normal/abnormal . GRAN MAT (NEUT) % 62.6 % (test code = 770-8) IMM GRAN % (test code 0.40 % = 7343809533) LYMPH % (test code = 28.5 % 736-9) MONO % (test code = 7.4 % 5905-5) EOS % (test code = 0.4 % 713-8) BASO % (test code = 0.7 % 706-2) GRAN MAT x10^3(ANC) 3.40 10*3/uL 1.88-7.09 (test code = 4328434657) IMM GRAN x10^3 (test 0-0.06 code = 8781935602) LYMPH x10^3 (test code 1.55 10*3/uL 1.32-3.29 = 731-0) MONO x10^3 (test code 0.40 10*3/uL 0.33-0.92 = 742-7) EOS x10^3 (test code = 0.03-0.39 L 711-2) BASO x10^3 (test code 0.04 10*3/uL 0.01-0.07 = 704-7) Lab Interpretation Abnormal (test code = 75253-2) [facility] [place]"
[2022-04-15] MEDS ORDERED: NA CHLORIDE 0.9% 1,000 ML ONE (20:10)
[2022-04-15 20:37] LABS: Absolute Lymphocytes (CBC) 1.8 K/uL (0.7-4.9); Hematocrit 38.1 % (36.0-45.0); Lymphocytes % 33.9 % (15.3-44.8); MCV 86.2 fL (80-100); MPV 9.9 fL (7.6-11.3); RBC Red Blood Cell Count 4.42 M/uL (3.86-4.86)
[2022-04-15 20:44] LABS: Protime INR 0.95
[2022-04-15 20:56] LABS: ALT/SGPT 36 U/L (13-56); AST/SGOT 22 U/L (15-37); Albumin 2.9 g/dL (3.4-5.0); Alkaline Phosphatase 113 U/L (45-117); BUN Blood Urea Nitrogen 12 mg/dL (7-18); Bicarbonate 27 mmol/L (21-32); Bilirubin Total 0.2 mg/dL (0.2-1.0); Glomerular Filtration Rate 71 ml/min (=/>90); Glucose Level 151 mg/dL (74-106); Potassium 3.2 mmol/L (3.5-5.1); Protein, Total 6.3 g/dL (6.4-8.2); Sodium Level 138 mmol/L (136-145)
[2022-04-15 20:58] LABS: Bilirubin Direct < 0.1 mg/dL (0-0.2)
[2022-04-15 21:10] LABS: Urine Blood Negative (Negative); Urine Glucose Negative (Negative); Urine Protein Trace (Negative); Urine Specific Gravity 1.015 (1.005-1.030); Urine pH 6.5 (5.0-7.0)
[2022-04-15 21:28] LABS: Barbiturates POSITIVE (NEGATIVE); Benzodiazepines NEGATIVE (NEGATIVE); Cocaine NEGATIVE (NEGATIVE); METHAMPHETAM NEGATIVE (NEGATIVE); Methadone NEGATIVE (NEGATIVE); Opiates NEGATIVE (NEGATIVE); Phencyclidine NEGATIVE (NEGATIVE); THC Cannibis POSITIVE (NEGATIVE)
[2022-04-15 22:32] LABS: Urine Specific Gravity/Preg 1.015 (1.005-1.030)
[2022-04-16] MEDS ORDERED: NA CHLORIDE 0.9% 1,000 ML ONE (02:23)
[2022-04-16] MEDS ORDERED: KCL 20 MEQ/100 mL IVPB 100 ML IV ONE (04:04)
[2022-04-16] MEDS ORDERED: MAGNESIUM SULFATE 1 gm IVPB 1 GM/100 ML BAG IV ONE (04:04)
[2022-04-16 04:46] LABS: SARS-CoV-2 Antigen Rapid Res Negative (Negative)
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
[2022-04-16] MEDS ORDERED: LORazepam 2 MG/ML VIAL ONE ×2 (11:15→22:22)
[2022-04-16] MEDS ORDERED: ZIPRASIDONE MESYLA 20 MG/VIAL IM ONE (11:15)
[2022-04-16] MEDS ORDERED: carvediloL 6.25 MG TAB ONE (20:13)
[2022-04-16] MEDS ORDERED: LORAZEPAM 1 MG TABLET ONE (20:13)
[2022-04-16] MEDS ORDERED: GABAPENTIN 300 MG CAP ONE (20:14)
[2022-04-16] MEDS ORDERED: FAMOTIDINE 20 MG TAB ONE (20:14)
[2022-04-16] MEDS ORDERED: DIVALPROEX DR 250 MG TAB PO ONE (20:14)
[2022-04-16] MEDS ORDERED: TRAZODONE 50 MG TABLET ONE (20:22)
[2022-04-16] MEDS ORDERED: PARoxetine HCL 10 MG TAB ONE (20:23)
[2022-04-16] MEDS ORDERED: hydrOXYzine HCL 25 MG TAB ONE (20:29)
[2022-04-16] MEDS ORDERED: ACETAMIN/CAFFEINE/BUTALB TAB PO ONE (22:58)
[2022-04-17] MEDS ORDERED: CYCLOBENZAPRINE 10 MG TAB ONE (00:30)
[2022-04-17] MEDS ORDERED: cloNIDine HCL 0.1 MG TAB ONE (01:34)
[2022-04-17] MEDS ORDERED: carvediloL 6.25 MG TAB ONE (10:42)
[2022-04-17] MEDS ORDERED: LORAZEPAM 1 MG TABLET ONE ×2 (10:42→15:16)
[2022-04-17] MEDS ORDERED: GABAPENTIN 300 MG CAP ONE ×2 (10:42→15:16)
[2022-04-17 17:08] VITALS: BP 166/95; TEMP 98.1; O2SAT 99
--- NOTE | 2022-04-19 17:24 | EKG ---
Test Date: 2022-04-16 Test Time: 02:55:24 Pigs Feet Cleaner: LUZ MARINA MEASUREMENT RESULTS: Intervals: Rate: 95 [place]: 130 QRSD: 86 QT: 378 QTc: 475 Kiefer: P: 25 [place]: 130 QRS: 53 T: -27 INTERPRETIVE STATEMENTS: Normal sinus rhythm Cannot rule out Inferior infarct, age undetermined Abnormal ECG Compared to ECG 02/04/2021 22:12:01 Myocardial infarct finding now present Sinus tachycardia no longer present Electronically Signed On 04-19-22 17:15:41 ALTERNATIVE ENERGY TECHNICIAN by Daniel Almanzar
== END 2022-04-17 16:18 ==
LOC: ER 19:43
DX: T50.992A Poisoning by other drugs, medicaments and biological substances, intentional self-harm, initial encounter (principal); R45.851 Suicidal ideations; F32.A Depression, unspecified; I10 Essential (primary) hypertension; I48.91 Unspecified atrial fibrillation; Z78.1 Physical restraint status; Z20.822 Contact with and (suspected) exposure to COVID-19; Z88.2 Allergy status to sulfonamides; Z98.82 Breast implant status
CPT/HCPCS: 96365; 96367; 93005; 85025; 80048; 36415; 81025; 85610; 82947; 80076; 85730; 81003; 80307; 96372; 99285; 96366; 87811; J7030; G0480 ×4